=== PATIENT | female | born 1970 | race Caucasian/White ===

== ENCOUNTER 2025-03-19 17:57 | Emergency (ER) | payer OTHER, SELFPAY ==
--- OUTSIDE RECORDS SUMMARY | 2025-02-13 09:20 | XMS_ITS ---
Author Organization [facility] Address [address] [place] [address] Care Team Providers Care Counter Checker Name Role Phone Kip Silverman Primary Care Provider Ricci Parish Unavailable [phone] REASON FOR VISIT F/U,pseudo seizures and fibromyalgia Social History Sex Assigned At : Social History Observation Description Sex Assigned At Female Encounters Encounter Location Date Provider Diagnosis [address] [place] [address] 02/13/2025 Ricci Parish Plan Of Treatment Next Appt Details Provider Name:Kip Silverman, 02:00:00 PM, [address] [place] [address], [id number], Progress Notes * Dimitri DUCKWORTHOB: 0 (54 yo F)Acc No.[id number]:02/13/2025 UNLOCKED PROGRESS NOTE Patient: Celeste Ruthann GILMAN Provider: Lisandro Parish :1970 A ge:54 Y S ex:Female Date:02/13/2025 Address:[address] [place] [id number] Pcp:Kip Silverman Subjective: * Chief Complaints: * 1 . F/U,pseudo seizures and fibromyalgia. * Medical History: Objective: * Vitals: Assessment: Plan: * Treatment: * * Electronic signature of Anatoliy Parish , [id number] on 03/19/2025 at 06:05 PM CDT Sign off status: Pending * Provider: Lisandro Parish Date: 0 02/13/2025 Generated for Peter hammond/Ramiro/Allan on: 1 06:05 PM CDT
--- NOTE | 2025-03-19 17:59 | ED_ITS ---
HPI - General Adult General Chief complaint: Skin/Abscess/Foreign Body Stated complaint: Rash Time Seen by Provider: 03/19/25 18:17 Source: patient, RN notes reviewed and old records reviewed Mode of arrival: ambulatory Limitations: no limitations History of Present Illness HPI narrative: 54-year-old female presents to the [facility] with a rash to her lateral abd that started at 1:00 p.m. today, 4 hours ago no treatment prior to arrival patient states he only new things that have been introduced was a new strain of marijuana and meloxicam. Related Data Home Medications ?Medication ?Instructions ?Recorded ?Confirmed ?Last Taken ?Type divalproex 500 mg tablet,extended mg PO 03/19/25 Unkn own History release 24 hr hydroxyzine pamoate 50 mg capsule mg 03/19/25 Unknown History meloxicam 15 mg tablet mg 03/19/25 Unknown History trazodone 100 mg tablet mg 03/19/25 Unknown History Allergies Allergy/AdvReac Type Severity Reaction Status Date / Time alprazolam (From Xanax) Allergy Unknown Unknown Verified 03/19/25 18:18 aluminum Allergy Unknown Unknown Verified 03/19/25 18:18 chocolate Allergy Unknown Unknown Verified 03/19/25 18:18 coffee (Coffea arabica) Allergy Unknown Unknown Verified 03/19/25 18:18 egg Allergy Unknown Unknown Verified 03/19/25 18:18 peanut Allergy Unknown Unknown Verified 03/19/25 18:18 wheat Allergy Unknown Unknown Verified 03/19/25 18:18 Yeast Allergy Unknown Unknown Verified 03/19/25 18:18 cod Allergy Unknown Unknown Uncoded 03/19/25 18:18 [place] Allergy Unknown Unknown Uncoded 03/19/25 18:18 Review of Systems Review of Systems: All systems reviewed & are unremarkable except as noted in HPI and below Constitutional: Constitutional: Reports no additional constitutional complaints ENT: Reports system reviewed and no additional complaints, except as documented Cardiovascular: Cardiovascular: Reports no additional cardiovascular complaints, Denies chest pain and Denies dyspnea Respiratory: Respiratory: Reports no additional respiratory complaints, Denies chest congestion, Denies cough and Denies dyspnea Musculoskeletal: Musculoskeletal: Reports no additional musculoskeletal complaints Integumentary/Breasts: Skin/Breast: Reports as per HPI PMFSH Comments At the time of my signature, I reviewed and agree with the nursing past medical, surgical, social, and family history. There is no relevant family history pertinent to the patient complaint. Exam Const: General: cooperative, healthy appearing, comfortable, no acute distress, well developed, alert and well nourished Nutritional Appearance: well nourished Orientation/consciousness: patient oriented x3 Limitations: no limitations HENMT: Head: normal to inspection Mouth: Yes Normal oral and palatal mucosa present, Yes lip normal, Yes tongue normal and Yes moist mucous membranes Eyes: General: appearance normal, both eyes and all related structures Alignment and Position: alignment normal Neck: Neck: normal visual inspection, full ROM, no lymphadenopathy and no meningeal signs Chest: Chest palpation & inspection: normal inspection of the chest Resp: Effort & Inspection: normal respiratory effort and able to speak in complete sentences Auscultation: clear to auscultation bilaterally, no crackles, no rales, no rhonchi and no wheezes Cardio: Rate: regular rate Skin: General skin exam: normal color Other: [place] flat rash to the lateral abdomen both right and left. Neuro: General: patient oriented x3, gait normal, moves all extremities and no meningeal signs Cognition (Neuro): normal cognition Speech: normal speech Gait exam (Neuro): Normal gait present Extrem: General: normal to inspection, full ROM, capillary refill normal and normal gait Psych: Appearance: grossly normal and well kempt Mental Status: mental status grossly normal Speech and movement: Normal speech and movement present and Clear speech present Affect: normal affect Attitude: cooperative Course Course Level of Care: Express Care Visit Vital Signs Vital signs: Vital Signs Temperature 97.9 F 03/19/25 18:06 Pulse Rate 85 03/19/25 18:06 Respiratory Rate 20 03/19/25 18:06 Blood Pressure 143/92 H 03/19/25 18:06 Pulse Oximetry 100 03/19/25 18:06 Oxygen Delivery Room Air 03/19/25 18:06 Temperature 97.9 F 03/19/25 18:06 Pulse Rate 85 03/19/25 18:06 Respiratory Rate 20 03/19/25 18:06 Blood Pressure 143/92 H 03/19/25 18:06 Pulse Oximetry 100 03/19/25 18:06 Oxygen Delivery Room Air 03/19/25 18:06 Reviewed Medical Decision Making MDM Narrative Medical decision making narrative: Patient sitting in exam room. Patient nontoxic, vitals stable. Patient presents with an itchy rash with no known cause. Rash to lateral abdomen both right and left. Fine, flat, pink. No signs of cellulitic changes Discussed [id number] treatments. Patient states that she does get anxious with prednisone but with like prednisone to help with the allergic reaction. Patient is in no distress. No lip or tongue swelling. No respiratory distress. Discharge instructions reviewed with patient, as well as provided in writing per nursing staff. The instructions also include specific and strict return/GO TO THE ER as well as f/u information. All questions have been answered, and the patient deny any further questions with discharge and discharge plan. Some parts of this dictation were generated by voice recognition software and may contain typographical and/or grammatical inaccuracies. Differential Diagnosis Differential Diagnosis: Acute rash, contact dermatitis Medical Records Medical records reviewed: Yes I reviewed the external patient's medical records. Vital Signs Vital Signs: Vital Signs Temperature 97.9 F 03/19/25 18:06 Pulse Rate 85 03/19/25 18:06 Respiratory Rate 20 03/19/25 18:06 Blood Pressure 143/92 H 03/19/25 18:06 Pulse Oximetry 100 03/19/25 18:06 Oxygen Delivery Room Air 03/19/25 18:06 Temperature 97.9 F 03/19/25 18:06 Pulse Rate 85 03/19/25 18:06 Respiratory Rate 20 03/19/25 18:06 Blood Pressure 143/92 H 03/19/25 18:06 Pulse Oximetry 100 03/19/25 18:06 Oxygen Delivery Room Air 03/19/25 18:06 Reviewed Lab Data Lab results reviewed: Yes I reviewed the patient's lab results. Labs: Reviewed Critical Care Time Critical Care Time Critical Care Time: No Discharge Plan Discharge Clinical Impression: Urticaria Patient Disposition: Home Condition: Stable Instructions: Acute Rash (ED) Additional Instructions: The most important part of your care is follow up with Primary care provider. take your hydroxyzine as prescribed Take Zyrtec every day Take Pepcid 20mg daily for 7 days Take the steroids starting In the morning Avoid hot showers, Take cool showers. Hot showers will make rashes worse Apply cool compresses every 2-3 hours for 15 minutes Go to the ER for new or worsening symptoms such as shortness of breath. Patient Language: Belizean Prescriptions: New prednisone 20 mg tablet 20 mg PO DAILY 5 Days Qty: 5 0RF No Action meloxicam 15 mg tablet hydroxyzine pamoate 50 mg capsule trazodone 100 mg tablet divalproex 500 mg tablet extended release 24 hr PO Follow-up/Referrals: Ricci Parish MD [Primary Care Provider, Hospitalist] Time of Disposition: 18:22
--- OUTSIDE RECORDS SUMMARY | 2025-03-19 18:05 | XMS_ITS | Patient Health Record ---
Author Organization [facility] Address [address] [place] [address] Care Team Providers Care Instrumentation Controls Engineer Name Role Phone Antonia Reyes Unavailable [phone] Doug Child MD Unavailable Unavailable Reason For Referral No Information Medications Medication SIG (Take, Route, Frequency, Duration) Notes Start Date End Date Status Vitamin D3 - daily - *Pick strength-form from [employer] for eRX* Active Mood Stabilizer - name and mg unknown; take 1 at bedtime - *Reorder from [employer] for eRx and Interaction Alerts* Active cyanocobalamin (vitamin B-12) - daily oral *Reorder from [employer] for eRx and Interaction Alerts* Active buspirone 20 mg daily oral *Reorder from [employer] for eRx and Interaction Alerts* Active Neti Pot - - - *Reorder from [employer] for eRx and Interaction Alerts* Active Effexor XR 75 MG take 1 capsule (75 mg) by oral route once daily Oral 1 Active Plan Of Treatment No Information Insurance Providers Payer Name Payer Address Payer Phone Subscriber Number Group Number Insured Name Patient Relationship to Insured Coverage Start Date Coverage End Date [facility] [id number] [place] [employer] [id number] Ruthann Holland Self - patient is the insured Medical (General) History Surgical History Surgery Date(Month/Year) ABL[place]; 2021-06-21
[2025-03-19 18:06] VITALS: BP 143/92; PULSE 85; RESP 20; TEMP 36.6; O2SAT 100
--- OUTSIDE RECORDS SUMMARY | 2025-03-19 18:06 | XMS_ITS | Clinical Summary ---
Author Organization [facility] Address [address] [place] [address] Care Team Providers Care Director Oncology Name Role Phone Doug Child MD Primary Care Provider [phone] Source Comments [facility],non-owned Affiliates and Associated Physician Practices is amultiple site organization consisting of ambulatory clinics and hospital sitesin [place], [place], [place] and [place]. This disclosure is being madepursuant to the Care Everywhere program and may not contain all information available regarding this patient. Last updated 18.[facility] Allergies Active Allergy Reactions Criticality Noted Date Comments Latex Swelling 09/16/2021 Redness and swelling Medications * Be aware that medications may not be up to date on this document. Alwaysverify current medications with the patient. ALPRAZolam (XANAX) 0.25 MG tablet Take 1 (one) tablet by mouth as needed for Anxiety Active cyanocobalamin (VITAMIN B-12) 1000 MCG tablet Take 1 (one) tablet by mouth once daily Active meloxicam (MOBIC) 15 MG tablet Take 1 (one) tablet by mouth once daily Active busPIRone (BUSPAR) 15 MG tablet Take 1 (one) tablet by mouth 2 times daily 08/18/2021 Active venlafaxine XR 24hr (EFFEXOR XR) 75 MG capsule Take 2 (two) capsules by mouth once daily 08/14/2021 Active VITAMIN D PO Take 5,000 mg by mouth once daily Active pregabalin (LYRICA) 150 MG capsule TAKE 1 CAPSULE BY MOUTH TWICE A DAY 11/17/2021 Active Active Problems Problem Noted Date Diagnosed Date Encounter for screening colonoscopy 08/16/2020 Overview (2021): Added automatically from request for surgery [id number] Anxiety 07/09/2013 Overview (2021): Anxiety Family History Medical History Relation Name Comments Hypertension Mother Osteoporosis Mother Cancer - Breast Paternal Grandmother Relation Name Status Comments Mother Paternal Grandmother Social History Tobacco Use Types Packs/Day Years Used Date Smoking Tobacco: Former Cigarettes 1 1 - 2006 Smokeless Tobacco: Never Alcohol Use Standard Drinks/Week Comments Never 0 (1 standard drink = 0.6 oz pur e alcohol) AUDIT-C Answer Date Recorded Q1: How often do you have a drink containing alcohol? Never 01/10/2022 Q2: How many drinks containi ng alcohol do you have on a typical day when you are drinking? Patient does not drink Q3: How often do you have si x or more drinks on one occasion? Never 01/10/2022 Comments No Sex and Gender Information Value Date Recorded Sex Assigned at Female 12/08/2021 5:43 PM CDT Legal Sex Female 9:37 AM [employer] Gender Identity Female 12/08/2021 5:43 PM CDT Sexual Orientation Straight 12/08/2021 5: 43 PM CDT Last Filed Vital Signs Vital Sign Reading Time Taken Comments Blood Pressure 118/71 08/22/2022 2:16 PM CDT Pulse 87 08/22/2022 2:16 PM CDT Temperature 37.1 C (98.7 F) 08/22/2022 2:16 PM CDT Respiratory Rate 16 08/22/2022 2:16 PM CDT Oxygen Saturation 97% 08/22/2022 2:16 PM CDT Inhaled Oxygen Concentration - - Weight 63.5 kg (140 lb) 08/22/2022 2:16 PM CDT Height 160 cm (5' 3) 08/22/2022 2:16 PM CDT Body Mass Index 24.8 08/22/2022 2:16 PM CDT Plan of Treatment Health Maintenance Due Date Last Done Comments COLOGUARD (AGES 45-75) - COLON CA SCREENING 1970 COLON MONITORING 1969 COLONOSCOPY - COLON CA SCREENING 1969 CT COLONOGRAPHY - COLON CA SCREENING 1970 Colorectal Cancer Screening 1970 FIT - COLON CA SCREENING 1969 FLEX SIG - COLON CA SCREENING 1969 LIPID TESTING 1970 HIV SCREENING 1984 HEPATITIS C SCREENING 07/23/1987 DTAP/TDAP/TD VACCINES (1 - Tdap) 1988 HEPATITIS B VACCINE (1 of 3 - 19+ 3-dose series) 1988 PAP SMEAR 1990 PNEUMOCOCCAL VACCINE 50+ (1 of 1 - PCV) 07/28/2019 ZOSTER VACCINE (1 of 2) 07/28/2019 MAMMOGRAM 12/10/2023 12/09/2021, 11/19, 09/03/2020, Additional history exists DEPRESSION SCREENING 05/21/2024 COVID-19 VACCINE (1 - season) 2025 INFLUENZA VACCINE (#1) 2025 HIB VACCINE Aged Out No longer eligi ble based on patient's age to complete this topic HPV VACCINE Aged Out No longer eligi ble based on patient's age to complete this topic MENINGOCOCCAL (Group B) VACCINE SHARED DECISION-MAKING Aged Out No longer eligible based on patient's age to complete this topic MENINGOCOCCAL GROUPS A/C/Y/W VACCINE Aged Out No longer eligible based on patient's age to complete this topic Care Teams Director Oncology Relationship Specialty Start Date End Date Doug Child MD [address] [place] [place] [address] PCP - General 05/24/22
--- OUTSIDE RECORDS SUMMARY | 2025-03-19 18:06 | XMS_ITS | Clinical Summary ---
Author Organization [facility] Address [address] [place] [address] Care Team Providers Care Director Outcomes Name Role Phone None, Provider MD Primary Care Provider Unavaila ble Medications No known medications Encounters Date Type Department Care Team Description 02/25/2025 2:18 PM CDT - 02/26/2025 3:38 AM CDT Emergency [facility] [address] [facility] [place] [address] Gera Minaya MD Psychiatric Problem Discharge Disposition: Transfer to Acute [facility] 02/25/2025 Travel from Last 3 Months Social History Tobacco Use Types Packs/Day Years Used Date Smoking Tobacco: Unknown Tobacco Cessation:Counseling Given: Not Answered Comments Unknown Sex and Gender Information Value Date Recorded Sex Assigned at Female 02/25/2025 2:37 PM CDT Legal Sex Female 2:16 PM CDT Gender Identity Not on file Sexual Orientation Not on file Last Filed Vital Signs Vital Sign Reading Time Taken Comments Blood Pressure 150/95 02/25/2025 2:27 PM CDT Pulse 102 02/25/2025 2:27 PM CDT Temperature 36.5 C (97.7 F) 02/25/2025 2:27 PM CDT Respiratory Rate 18 02/25/2025 2:27 PM CDT Oxygen Saturation 97% 02/25/2025 2:27 PM CDT Inhaled Oxygen Concentration - - Weight 70.3 kg (155 lb) 02/25/2025 2:27 PM CDT Height 160 cm (5' 3) 02/25/2025 2:27 PM CDT Body Mass Index 27.46 02/25/2025 2:27 PM CDT Plan of Treatment Health Maintenance Due Date Last Done Comments Cervical Cancer Screening Pap Smear (Age 30 to 64) Every 3 Years 1969 Colorectal Cancer Screening Colonoscopy (10 Years) 1969 Annual Physical 1972 Hepatitis C 07/28/1987 DTaP, Tdap and Td Vaccines (1 - Tdap) 1988 Hepatitis B Vaccines (1 of 3 - 19+ 3-dose series) 1988 Cervical Cancer Screening Pap with HPV Testing (Age 30 to 64) Every 5 Years 07/28/1999 Cervical Cancer Screening with HPV 07/28/1999 Pneumococcal Vaccine: 50+ Years (1 of 1 - PCV) 07/28/2019 Zoster Vaccines (1 of 2) 07/28/2019 COVID-19 Vaccine (1 - season) 2025 Influenza Adult (#1) 2025 Mammogram Screening 11/27/2026 11/27/2024, 12/09/2021, 09/03/2020, Additional history exists Hepatitis A Vaccines Aged Out No long er eligible based on patient's age to complete this topic Meningococcal B Vaccine Aged Out No l onger eligible based on patient's age to complete this topic Meningococcal Vaccine Aged Out No kaila george eligible based on patient's age to complete this topic RSV Immunizations Under 20 Months Aged Out No longer eligible based on patient's age to complete this topic Procedures Procedure Name Priority Date/Time Associated Diagnosis Comments CORONAVIRUS (COVID-19) ANTIGEN STAT 02/25/2025 11:26 PM CDT URINE BACTERIA CULTURE STAT 3:00 PM CDT DRUG SCREEN RAPID STAT 02/25/2025 3:0 0 PM CDT HC URINALYSIS AUTO W/MICRO STAT 02/25/2025 3:00 PM CDT ETHANOL STAT 02/25/2025 2:21 PM CDT MAGNESIUM STAT 02/25/2025 2:21 PM CDT SALICYLATE STAT 02/25/2025 2:21 PM CDT ACETAMINOPHEN STAT 02/25/2025 2:21 PM CDT THYROID STIM HORMONE TSH STAT 02/25/2025 2:21 PM CDT COMPREHENSIVE METABOLIC PANEL STAT 02/25/2025 2:21 PM CDT CBC W/DIFF AUTOMATED STAT 02/25/2025 2:21 PM CDT from Last 3 Months Results * CORONAVIRUS (COVID-19) ANTIGEN (02/25/2025 11:26 PM CDT) [facility] CORONAVIRUS ANTIGEN IA NEGATIVE NEGATIVE 02/25/2025 11:48 PM CDT [facility] Comment: NEGATIVE RESULTS DO NOT RULE OUT SARS-COV-2 INFECTION AND SHOULD NOT BE USED THE SOLE BASIS FOR TREATMENT OR PATIENT MANAGEMENT DECISIONS, INCLUDING INFECTION CONTROL DECISIONS. NEGATIVE RESULTS SHOULD BE CONSIDERED IN THE CONTEXT OF A PATIENT'S RECENT EXPOSURES, HISTORY AND THE PRESENCE OF CLINICAL SIGNS AND SYMPTOMS CONSISTENT WITH COVID 19. THIS TEST HAS BEEN AUTHORIZED BY THE FDA UNDER AN EMERGENCY USE AUTHORIZATION (EUA) FOR USE BY AUTHORIZED LABORATORIES. SPECIMEN TYPE NASAL 02/25/2025 11:28 PM CDT [facility] NASAL NASAL STRUCTURE / Unknown 02/25/2025 11:26 PM CDT us Gera Minaya MD MICROBIOLOGY - GENERAL ORDERABLE S Final Result [facility] [address] [place] [address], * (ABNORMAL) DRUG SCREEN RAPID (02/25/2025 3:00 PM CDT) Pathologist [facility] CANNABINOIDS SCREEN (U) POSITIVE(A) NEGATIVE 02/25/2025 3:56 PM CDT [facility] PHENCYCLIDINE PCP (U) NEGATIVE NEGATIVE 02/25/2025 3:56 PM CDT [facility] COCAINE METABOLITES (U) NEGATIVE NEGATIVE 02/25/2025 3:56 PM CDT [facility] METHAMPHETAMINE SCREEN (U) NEGATIVE NEGATIVE 02/25/2025 3:56 PM CDT [facility] OPIATE SCREEN (U) NEGATIVE NEGATIVE 025 3:56 PM CDT [facility] AMPHETAMINE SCREEN (U) NEGATIVE NEGATIVE 02/25/2025 3:56 PM CDT [facility] BENZODIAZEPINES SCREEN (U) NEGATIVE NEGATIVE 02/25/2025 3:56 PM CDT [facility] TRICYCLIC ANTIDEPRESSANT SCREEN (U) NEGATIVE NEGATIVE 02/25/2025 3:56 PM CDT [facility] METHADONE (U) NEGATIVE NEGATIVE 02/25/2025 3:56 PM CDT [facility] BARBITURATES SCREEN (U) NEGATIVE NEGATIVE 02/25/2025 3:56 PM CDT [facility] OXYCODONE SCREEN (U) NEGATIVE NEGATIVE 02/25/2025 3:56 PM CDT [facility] URINE TOX COMMENT THIS TEST METHODOLOGY IS DESIGNED AND OFFERED A RAPID TURNAROUND, QUALITATIVE SCREENING PROCEDURE TO AID IN THE IMMEDIATE MEDICAL ASSESSMENT OF PATIENTS SUSPECTED OF SUBSTANCE ABUSE. 02/25/2025 3:37 PM CDT [facility] Comment: CLINICAL CONSIDERATION AND PROFESSIONAL JUDGMENT MUST BE APPLIED TO ANY DRUG OF ABUSE TEST RESULT, BOTH POSITIVE AND NEGATIVE. CONFIRMATORY QUANTITATIVE RESULTS ARE AVAILABLE THROUGH OUR REFERENCE LAB[facility]ATORY. URINE SPECIMEN / Unknown 02/25/2025 3:00 PM CDT us Geraluiza Minaya MD URINE ORDERABLES Final Result [facility] [address] [place] [address], * (ABNORMAL) URINALYSIS (02/25/2025 3:00 PM CDT) COLOR (U) YELLOW 02/25/2025 3:53 PM CDT [facility] TRANSPARENCY CLEAR 02/25/2025 3:53 PM CDT [facility] SPECIFIC GRAVITY (U) 1.005 1.000 - 1.025 02/25/2025 3:53 PM CDT [facility] Comment:LESS THAN OR EQUAL T O U PH 6.5 5.0 - 8.0 02/25/2025 3:53 PM CDT [facility] LEUKOCYTES (U) NEGATIVE NEGATIVE 02/25/2025 3:53 PM CDT [facility] NITRITES NEGATIVE NEGATIVE 02/25/2025 3:53 PM CDT [facility] PROTEIN RANDOM (U) NEGATIVE NEGATIVE 02/25/2025 3:53 PM CDT [facility] GLUCOSE (U) NEGATIVE NEGATIVE 02/25/2025 3:53 PM CDT [facility] KETONES MG/DL (U) 1+(A) NEGATIVE 02/25/2025 3:53 PM CDT [facility] UROBILINOGEN 0.2 <1.0 EU/DL 02/25/2025 3:53 PM CDT [facility] BILIRUBIN (U) NEGATIVE NEGATIVE 02/25/2025 3:53 PM CDT [facility] BLOOD (U) NEGATIVE NEGATIVE 02/25/2025 3:53 PM CDT [facility] WBC/HPF 0-5 0 - 5 /HPF 02/25/2025 3:53 PM CDT [facility] RBC/HPF 0-5 0 - 5 /HPF 02/25/2025 3:53 PM CDT [facility] EPI/LPF MODERATE /LPF 02/25/2025 3:53 PM CDT [facility] BACTERIA (U) 1+ /HPF 02/25/2025 3:53 PM CDT [facility] URINE SPECIMEN OBTAINED BY CLEAN CATCH PROCEDURE / Unknown 02/25/2025 3:00 PM CDT us Gera Minaya MD URINE ORDERABLES Final Result [facility] [address] [place] [address], * CULTURE URINE (02/25/2025 3:00 PM CDT) SPEC DESCRIPTION URINE CLEAN CATCH 02/25/2025 3:37 PM CDT [facility] SPECIAL REQUESTS NO SPECIAL REQUEST 02/25/2025 3:37 PM CDT [facility] CULTURE RESULT FEW CONTAMINANTS 02/18 7:58 AM CDT [facility] URINE SPECIMEN OBTAINED BY CLEAN CATCH PROCEDURE / Unknown 02/25/2025 3:00 PM CDT 02/25/2025 6:58 PM CDT us Gera Minaya MD MICROBIOLOGY - GENERAL ORDERABLE S Final Result [facility] [address] [place] [address], [place] [phone] [facility] [address] [place] [address], [place] [phone] * (ABNORMAL) COMPREHENSIVE METABOLIC PANEL (02/25/2025 2:21 PM CDT) SODIUM S/P/B 133(L) 136 - 145 MMOL/L 02/25/2025 3:28 PM CDT [facility] POTASSIUM S/P/B 3.3(L) 3.5 - 5.1 MMOL/L 02/25/2025 3:28 PM CDT [facility] CHLORIDE S/P/B 97(L) 98 - 107 MMOL/L 02/25/2025 3:28 PM CDT [facility] CO2 23.7 21.0 - 32.0 MMOL/L 02/25/2025 3:28 PM CDT [facility] GLUCOSE 120(H) 70 - 99 MG/DL 02/25/2025 3:28 PM CDT [facility] Comment: FASTING GLUCOSE 100 TO 125 MG/DL IS CONSISTENT WITH IMPAIRED FASTING GLUCOSE. FASTING GLUCOSE >125 MG/DL IS CONSISTENT WITH DIABETES. RANDOM GLUCOSE >200 MG/DL WITH HYPERGLYCEMIC SYMPTOMS IS CONSISTENT WITH DIABETES. PER ADA GUIDELINES BUN 5(L) 6 - 24 MG/DL 02/25/2025 3:28 PM CDT [facility] CREATININE S/P/B 0.83 0.55 - 1.02 MG/DL 02/25/2025 3:28 PM [facility] CALCIUM S/P/B 9.7 8.4 - 10.5 MG/DL 02/25/2025 3:28 PM [facility] BILIRUBIN TOTAL S/P/B 0.5 0.2 - 1.0 MG/DL 02/25/2025 3:28 PM T [facility] Comment: THIS ASSAY IS NOT RECOMMENDED FOR PATIENTS UNDERGOING TREATMENT WITH ELTROMBOPAG DUE TO THE POTENTIAL FOR FALSELY ELEVATED RESULTS. ALKALINE PHOSPHATASE S/P/B 52 41 - 108 U/L 02/25/2025 3:28 PM T [facility] AST 31 15 - 37 U/L 02/25/2025 3:28 PM [facility] ALT 20 14 - 59 U/L 02/25/2025 3:28 PM [facility] TOTAL PROTEIN S/P/B 7.2 6.4 - 8.2 G/DL 02/25/2025 3:28 PM [facility] ALBUMIN S/P/B 4.3 3.4 - 5.0 G/DL 02/25/2025 3:28 PM [facility] ANION GAP 12.3 5.0 - 15.0 MMOL/L 02/25/2025 3:28 PM [facility] OSMOLALITY (CALC) 274 MOSM/KG 025 3:28 PM [facility] Comment:REFERENCE RANGE NOT ESTABLISHED GFR ESTIMATE 83(L) >89 ML/MIN/1. 73 M2 02/25/2025 3:28 PM T [facility] GFR NOTES GFR REFERENCE S: 02/25/2025 3:28 PM [facility] Comment: THE ESTIMATED GFR IS CALCULATED USING THE 2020 CKD-EPI EQUATION. THE FOLLOWING CATEGORIES FOR GRADING RENAL FUNCTION ARE RECOMMENDED BY THE INTERNATIONAL SOCIETY OF NEPHROLOGY (KDIGO 2012 CLINICAL PRACTICE GUIDELINE). G1,NORMAL OR HIGH: >89 ml/min/1.73 m2 G2,MILDLY DECREASED: 60-89 ml/min/1.73 m2 G3A,MILDLY TO MODERATELY DECREASED: 45-59 ml/min/1.73 m2 G3B,MODERATELY TO SEVERELY DECREASED: 30-44 ml/min/1.73 m2 G4,SEVERELY DECREASED: 15-29 ml/min/1.73 m2 G5,KIDNEY FAILURE: <15 ml/min/1.73 m2 02/25/2025 2:21 PM CDT us Gera Minaya MD LABORATORY Final Result [facility] [address] [place] [address], * CBC W/DIFF AUTOMATED (02/25/2025 2:21 PM CDT) WBC 6.99 4.00 - 10.80 x10'3/uL 02/25/2025 2:48 PM CDT [facility] RBC 4.24 4.10 - 5.40 x10'6/uL 02/25/2025 2:48 PM CDT [facility] HGB 12.6 12.0 - 16.0 G/DL 02/25/2025 2:48 PM CDT [facility] HCT 36.7 36.0 - 47.0 % 02/25/2025 2:48 PM CDT [facility] MCV 86.6 78.0 - 100.0 FL 02/25/2025 2:48 PM CDT [facility] MCH 29.7 27.0 - 31.0 PG 02/25/2025 2:48 PM CDT [facility] MCHC 34.3 33.0 - 36.0 G/DL 02/25/2025 2:48 PM CDT [facility] RDW 12.6 11.5 - 14.5 % 02/25/2025 2:48 PM CDT [facility] PLT 311 150 - 350 x10'3/uL 02/25/2025 2:48 PM CDT [facility] MPV 10.3 7.4 - 10.4 FL 02/25/2025 2:48 PM CDT [facility] CBC COMMENT NORMAL REFERENCE RANGE NOT ESTABLISHED FOR THE PROPORTIONAL LEUKOCYTE DIFFERENTIAL. 02/25/2025 2:48 PM CDT [facility] NEUTROPHILS % 67.7 % 02/25/2025 2:48 PM CDT [facility] LYMPHOCYTES % 24.0 % 02/25/2025 2:48 PM CDT [facility] MONOCYTES % 7.7 % 02/25/2025 2:48 PM CDT [facility] EOSINOPHILS % 0.1 % 02/25/2025 2:48 PM CDT [facility] BASOPHILS % 0.4 % 02/25/2025 2:48 PM CDT [facility] IMMATURE GRANS % 0.1 % 02/26/20 2:48 PM CDT [facility] NRBC % 0.0 % 02/25/2025 2:48 PM CDT [facility] ABS. NEUTROPHILS 4.72 1.60 - 8.30 x10'3/uL 02/25/2025 2:48 PM CDT [facility] ABS. LYMPHOCYTES 1.68 0.80 - 4.70 x10'3/uL 02/25/2025 2:48 PM CDT [facility] ABS. MONOCYTES 0.54 0.00 - 1.50 x10'3/uL 02/25/2025 2:48 PM CDT [facility] ABS. EOSINOPHILS 0.01 0.00 - 0.40 x10'3/uL 02/25/2025 2:48 PM CDT [facility] ABS. BASOPHILS 0.03 0.00 - 0.20 x10'3/uL 02/25/2025 2:48 PM CDT [facility] ABS. IMMATURE GRANULOCYTES 0.01 0.00 - 0.03 x10'3/uL 02/25/2025 2:48 PM CDT [facility] ABS. NUCLEATED RBC'S 0.00 0.00 - 0.01 x10'3/uL 02/25/2025 2:48 PM CDT [facility] 02/25/2025 2:21 PM CDT us Gera Minaya MD LABORATORY Final Result [facility] [address] [place] [id number], * THYROID STIM HORMONE, TSH (02/25/2025 2:21 PM CDT) TSH 1.059 0.358 - 3.740 uIU/ML 02/25/2025 3:28 PM CDT [facility] Comment: ASSAY PERFORMED BY CHEMILUMINESCENT IMMUNOASSAY METHODOLOGY USING [employer]. PATIENT RESULTS DETERMINED BY ASSAYS FROM DIFFERENT MANUFACTURERS AND/OR BY DIFFERENT METHODS MAY NOT BE COMPARABLE. 02/25/2025 2:21 PM CDT us Gera Minaya MD LABORATORY Final Result Performing Organization Address City/[facility]/ZIP Co de Phone Number [facility] [address] [place] [id number], * MAGNESIUM (02/25/2025 2:21 PM CDT) MAGNESIUM 2.0 1.8 - 2.4 MG/DL 02/25/2025 3:28 PM CDT [facility] 02/25/2025 2:21 PM CDT us Gera Minaya MD LABORATORY Final Result [facility] [address] [place] [id number], * SALICYLATE (02/25/2025 2:21 PM CDT) SALICYLATES 5.6 2.8 - 20.0 MG/DL 02/25/2025 3:28 PM CDT [facility] 02/25/2025 2:21 PM CDT us Gear Minaya MD LABORATORY Final Result Performing Organization Address [facility] Co de Phone Number [facility] [address] [place] [id number], * ETHANOL (02/25/2025 2:21 PM CDT) ALCOHOL S/P/B <0.003 <0.003 G/DL 02/25/2025 11:37 PM CDT [facility] 02/25/2025 2:21 PM CDT us Gera Minaya MD LABORATORY Final Result Performing Organization Address [facility] de Phone Number [facility] [address] [place] [address], * (ABNORMAL) ACETAMINOPHEN (02/25/2025 2:21 PM CDT) ACETAMINOPHEN S/P/B 0.0(L) 10.0 - 30.0 MCG/ML 02/25/2025 3:28 PM CDT [facility] 02/25/2025 2:21 PM CDT us Gera Minaya MD LABORATORY Final Result Performing Organization Address [facility] Co de Phone Number [facility] [address] [place] [id number], [place] [phone] from Last 3 Months Insurance Care Teams Director Outcomes Relationship Specialty Start Date End Date None, Provider, PCP - General UNKNOWN PHYSICIAN SPECIALTY 02/26/25
--- OUTSIDE RECORDS SUMMARY | 2025-03-19 18:06 | XMS_ITS | Patient Health Record ---
Author Organization [facility] Address [address] [place] [address] Care Team Providers Care Processor Inspector Name Role Phone Kip Hendrix Primary Care Provider Ricci Parish Unavailable [phone] Allergies Allergen (clinical drug ingredient) Drug/Non Drug Allergy documented on EMR Reaction Allergy Type Onset Date Status fluoxetine PROzac Unknown Drug Allergy Active alprazolam Xanax Unknown Drug Allergy Active sertraline Zoloft Unknown Drug Allergy Active Results Component Value Reference Range Notes Hemoglobin A1c* Reviewed date:09/25/2024 03:21:15 PM Interpretation: Performing Lab:[facility], [address] [facility], Phone - [phone], Director - Lorelei Notes/Report: Hemoglobin A1c 5.6 4.8-5.6 % . Prediabetes: 5.7 - 6.4 Diabetes: >6.4 Glycemic control for adults with diabetes: <7.0 Lipid Panel* Reviewed date:09/25/2024 03:21:15 PM Interpretation: Performing Lab:[facility], [address] [facility], Phone - [phone], Director - PhDMicky Notes/Report: Cholesterol, Total 220 100-199 mg/dL Triglycerides 121 0-149 mg/dL HDL Cholesterol 69 >39 mg/dL VLDL Cholesterol Dao 21 5-40 mg/dL LDL Chol Calc ([facility]) 130 0-99 mg/dL Carotid Duplex Reviewed date:12/04/2024 01:44:01 PM Interpretation: Performing Lab: Notes/Report: 12 Panel Urine Drug Screen Reviewed date:09/23/2024 09:23:41 AM Interpretation: Performing Lab: Notes/Report: THC POS TIERA neg MOP (OPI) neg AMP neg MET neg BAR neg BZO neg MDMA neg MTD neg OXY neg PCP neg BUP neg HIV Screen *HIV 1, 2 Ab, p24 Ag (035891) Reviewed date:09/25/2024 03:21:15 PM Interpretation: Performing Lab:[facility], [address] [place] [address], Phone - [phone], Director - [facility] Notes/Report: HIV Ab/p24 Ag Screen Non Reactive Non Reactive HIV-1/HIV-2 antibodies and HIV-1 p24 antigen were NOT detected. There is no laboratory evidence of HIV infection. HIV Negative Vitamin B12 and Folate Reviewed date:09/25/2024 03:21:15 PM Interpretation: Performing Lab:[facility], [address] [place] [address], Phone - [phone], Director - [facility] Notes/Report: Vitamin B12 353 133-3225 pg/mL Folate (Folic Acid), Serum TNP Test not performed. Specimen is hemolyzed. Unable to obtain valid results. A serum folate concentration of less than 3.1 ng/mL is considered to represent clinical deficiency. CBC With Differential/Platel et* Reviewed date:09/25/2024 03:21:15 PM Interpretation: Performing Lab:[facility], [address] [place] [address], Phone - [phone], Director - [facility] Notes/Report: WBC 4.7 3.4-10.8 x10E3/uL RBC 5.05 3.77-5.28 x10E6/uL Hemoglobin 14.6 11.1-15.9 g/dL Hematocrit 45.5 34.0-46.6 % MCV 90 79-97 fL MCH 28.9 26.6-33.0 pg MCHC 32.1 31.5-35.7 g/dL RDW 13.3 11.7-15.4 % Platelets 292 150-450 x10E3/uL Neutrophils 53 Not Estab. % Lymphs 37 Not Estab. % Monocytes 7 Not Estab. % Eos 2 Not Estab. % Basos 1 Not Estab. % Neutrophils (Absolute) 2.5 1.4-7.0 x10E3/uL Lymphs (Absolute) 1.8 0.7-3.1 x10E3/uL Monocytes(Absolute) 0.3 0.1-0.9 x10E3/uL Eos (Absolute) 0.1 0.0-0.4 x10E3/uL Baso (Absolute) 0.0 0.0-0.2 x10E3/uL Immature Granulocytes 0 Not Estab. % Immature Grans (Abs) 0.0 0.0-0.1 x10E3/uL Hepatitis B Surface Antigen (HBsAg Screen) Reviewed date:09/25/2024 03:21:15 PM Interpretation: Performing Lab[facility] [address] [facility], Phone - [phone], Director - [facility] Notes/Report: HBsAg Screen Negative Negative Specimen Status Report TNP Comment: Test not performed. Specimen is hemolyzed. Unable to obtain valid results. TEST: 280556 Folate (Folic Acid), Serum Panel: [id number] Hepatitis C Virus Antibody w /Rflx to Quantitative Real-time PCR (836736) Reviewed date:09/25/2024 03:21:15 PM Interpretation: Performing Lab:[facility] [place], [address] [facility], Phone - [phone], Director - [facility] Notes/Report: HCV Ab Non Reactive Non Reactive Interpretation: Not infected with HCV unless early or acute infection is suspected (which may be delayed in an immunocompromised individual), or other evidence exists to indicate HCV infection. CMP 14 Comprehensive Metabol ic Panel* Reviewed date:09/25/2024 03:21:16 PM Interpretation: Performing Lab:[facility] [place], [address] [facility], Phone - [phone], Director - [facility] Notes/Report: Glucose 101 70-99 mg/dL BUN 7 6-24 mg/dL Creatinine 0.87 0.57-1.00 mg/dL eGFR 79 >59 mL/min/1.73 BUN/Creatinine Ratio 8 9-23 Sodium 146 134-144 mmol/L Potassium TNP Test not performed. Specimen is hemolyzed. Unable to obtain valid results. Chloride 107 96-106 mmol/L Carbon Dioxide, Total 18 20-29 mmol/L Calcium 9.9 8.7-10.2 mg/dL Protein, Total 7.7 6.0-8.5 g/dL Albumin 4.8 3.8-4.9 g/dL Globulin, Total 2.9 1.5-4.5 g/dL Bilirubin, Total 0.3 0.0-1.2 mg/dL Alkaline Phosphatase 59 44-121 IU/L AST (SGOT) 28 0-40 IU/L ALT (SGPT) 13 0-32 IU/L TSH Rfx on Abnormal to Free T4 Reviewed date:09/25/2024 03:21:16 PM Interpretation: Performing Lab:[facility], [address] [place] [address], Phone - [phone], [facility]/Report: TSH 3.330 0.450-4.500 uIU/mL Rapid Plasma Reagin (RPR) Te st With Reflex to Quantitative RPR and Confirmatory Treponema pallidum Antibodies Reviewed date:09/25/2024 03:21:16 PM Interpretation: Performing Lab:[facility] [place], [address] [place] [address], Phone - [phone], Director - [facility] Notes/Report: RPR Non Reactive Non Reactive MAMMOGRAM BILAT, SCREENING Reviewed date:12/17/2024 08:32:15 AM Interpretation:Normal Performing Lab: Notes/Report: Normal Reason For Referral No Information Medications Medication SIG (Take, Route, Frequency, Duration) Notes Start Date End Date Status traZODone HCl 100 MG 1 tablet at bedtime as needed Orally Once a day; Duration: 30 days 03/10/2025 Active Invega Sustenna 156 MG/ML 1 mL Intramusc ular every four weeks; Duration: 28 days 03/10/2025 Active DULoxetine HCl 60 MG 1 capsule Orally tw ice a day; Duration: 30 days Active Topiramate 100 MG 1 tablet Orally twic e a day; Duration: 30 days Active Triamcinolone Acetonide 0.1 % 1 application Externally twice a day 12/17/2024 Active Rizatriptan Benzoate 5 MG 1 tablet Orally Once a day; Duration: 30 days MIGRAINE (NOT TO EXCEED 2 DOSES PER WEEK) 12/17/2023 Active Airsupra 90-80 MCG/ACT 2 puffs as needed Inhalation every 4 hours; Duration: 30 days As needed shortness of breath 03/12/2025 Active hydrOXYzine Pamoate 50 MG 1 capsule at bedtime as needed Orally 3 times a day; Duration: 30 days As needed ITCHING 12/17/2024 Active Meloxicam 15 MG 1 tablet Orally Once a day; Duration: 30 days As needed JOINT PAIN 04/04/2024 Active Depakote ER 500 MG 2 tablets bedtime Or ally daily; Duration: 30 days 03/10/2025 Active Social History Tobacco Use: Social History Observation Description Date Details (start date - stop date) Never Smoker NA - NA Sex Assigned At : Social History Observation Description Sex Assigned At Female Tobacco Control (Standard) Question Answer Notes Tobacco use: Nonsmoker Problems Problem Type SNOMED Code ICD Code Onset Dates Problem Status W/U Status Risk Notes Problem Bodily distress disorder (disorder) (957159537) Somatoform disorder, unspecified (F45.9) Active confirmed Problem Hyperlipidemia (44629648) Hyperlipidemia (E78.5) Active confirmed Problem Major depression (787990959) Major depression (F32.9) Active confirmed Problem Posttraumatic stress disorder (94442147) PTSD (post-traumatic stress disorder) (F43.10) Active confirmed Problem Bipolar 1 disorder (046217896) Bipolar 1 disorder (F31.9) Active confirmed Problem Migraine (16533268) Migraine (G43.909) Active confirmed Problem Asthma (670938886) Asthma (J45.909) Active confirmed Problem Cannabis abuse (87842937) Cannabis abuse (F12.10) Active confirmed Problem Overweight (832346140) Over weight (E66.3) Active confirmed Problem Osteoarthritis (473312065) Osteoarthritis involving multiple joints on both sides of body (M15.9) Active confirmed Vital Signs Heart Rate 101 /min 03/12/2025 Temperature 98.2 degrees Fahrenheit 12/17/2024 Respiratory Rate 16 /min 03/12/2025 Blood pressure diastolic 66 mm Hg 03/12/2025 Oximetry 98 % 03/12/2025 Height 63.5 in in 03/12/2025 Blood pressure systolic 104 mm Hg 03/12/2025 Weight 165 lbs lbs 03/12/2025 BMI 28.77 kg/m2 03/12/2025 Encounters Encounter Location Date Provider Diagnosis [address] [place] [address] 09/23/2024 Ricci Parish Exposure to potentia l infection Z20.9 ; Screening for colon cancer Z12.11 ; Fatigue R53.83 ; Screening for diabetes mellitus Z13.1 ; Lipid screening Z13.220 and Spell of altered cognition R41.[address] [address] 03/19/2025 Arif Habib [address] [address] 03/25/2024 Arif Habib Major depression F32 .9 [facility] [address] [place] [address] 04/04/2024 Ricci Parish Acute sinusitis J01. 90 ; Osteoarthritis involving multiple joints on both sides of body M15.9 and Nutritional counseling Z71.[address] [address] 04/22/2024 Arif Habib Major depression F32 .[address] [address] 05/30/2024 Arif Habib Major depression F32 .[address] [address] 07/11/2024 Arif Habib Major depression F32 .[address] [address] 08/12/2024 Arif Habib Major depression F32 .[address] [address] 09/19/2024 Arif Habib Major depression F32 .[address] [address] 09/23/2024 Ricci Parish Spell of altered cognition R41.89 ; Fatigue R53.83 ; Exposure to potential infection Z20.9 ; Lipid screening Z13.220 ; Over weight E66.3 ; Screening for diabetes mellitus Z13.1 ; Breast cancer screening by mammogram Z12.31 and Screening for colon cancer Z12.[address] [address] 09/30/2024 Arif Habib Major depression F32 .[address] [address] 11/11/2024 Arif Habib Major depression F32 .[address] [address] 12/12/2024 Arif Habib Major depression F32 .[address] [address] 12/17/2024 Ricci Parish Hyperlipidemia E78.5 ; Dermatitis L30.9 ; Fatigue R53.83 ; Major depression F32.9 and Over weight E66.[address] [address] 01/06/2025 Arif Habib Major depression F32 .9 [facility] [address] [place] [address] 02/16/2025 Ricci Parish Major depression F32 .9 and Somatoform disorder, unspecified F45.[address] [address] 02/17/2025 Arif Habib Major depression F32 .[address] [address] 03/10/2025 Arif Habib Over weight E66.3 ; Major depression F32.9 ; Bipolar 1 disorder F31.9 and PTSD (post-traumatic stress disorder) F43.[address] [address] 03/12/2025 Ricci Parish Osteoarthritis involving multiple joints on both sides of body M15.9 ; Left shoulder pain M25.512 ; Cannabis abuse F12.10 ; Over weight E66.3 ; Dermatitis L30.9 and Asthma J45.[address] [address] 03/18/2025 Arif Habib [address] [address] 03/19/2025 Arif Habib [address] [address] 04/14/2024 Ricci Parish [address] [address] 04/25/2024 Ricci Parish Acute sinusitis J01. 90 ; Serous otitis media H65.90 and Yeast vaginitis B37.[address] [address] 07/03/2024 Ricci Parish [address] [address] 09/11/2024 Arif Habib Major depression F32 .[address] [address] 09/18/2024 Ricci Parish [address] [address] 09/25/2024 Ricci Parish [address] [address] 11/07/2024 Arif Habib Major depression F32 .[address] [address] 12/04/2024 Ricci Parish [address] [address] 01/05/2025 Arif Habib [address] [address] 02/12/2025 Ricci [facility] [address] [place] [address] 03/13/2025 Arif Habib Bipolar 1 disorder F31.9 Assessments Encounter Date Diagnosis (ICD Code) Assessment Notes Treatment Notes Treatment Clinical Notes Section Notes 04/25/2024 Acute sinusitis (ICD-10 - J01.90) 04/25/2024 Serous otitis media (ICD-10 - H65.90) 09/23/2024 Fatigue (ICD-10 - R53.83) 04/04/2024 Osteoarthritis involving multiple joints on both sides of body (ICD-10 - M15.9) 04/22/2024 Major depression (ICD-10 - F32.9) side effects discussed. Continue Topamax 100 mg BID. Continue Effexor 75 mg daily. Supportive treatment provided. Uses marijuana for pain, anxiety,PTSD. 05/30/2024 Major depression (ICD-10 - F32.9) side effects discussed. Continue Topamax 100 mg BID. Continue Effexor 75 mg daily. Supportive treatment provided. Uses marijuana for pain, anxiety,PTSD. 07/11/2024 Major depression (ICD-10 - F32.9) side effects discussed. Continue Topamax 100 mg BID. Lower Effexor 75 mg daily. Start Cymbalta 30 mg daily. Supportive treatment provided. Uses marijuana for pain, anxiety,PTSD. Advised to stop marijuana. Continue therapist in [place] 08/12/2024 Major depression (ICD-10 - F32.9) side effects discussed. Continue Topamax 100 mg BID. Stop Effexor 37.5 mg daily. Increase Cymbalta 60 mg daily. Supportive treatment provided. Uses marijuana for pain, anxiety,PTSD. Advised to stop marijuana. Continue therapist [place] 09/11/2024 Major depression (ICD-10 - F32.9) 09/19/2024 Major depression (ICD-10 - F32.9) side effects discussed. Continue Topamax 100 mg BID. Hold Cymbalta 60 mg daily until she sees PCP, Dr Parish on Sunday. Supportive treatment provided. Uses marijuana for pain, anxiety,PTSD. Continue therapist [place] 03/25/2024 Major depression (ICD-10 - F32.9) side effects discussed. Increase Topamax 100 mg BID. Continue Effexor 75 mg daily. Advised to stop marijuana. Supportive treatment provided. Uses marijuana for pain, anxiety,PTSD. 04/04/2024 Acute sinusitis (ICD-10 - J01.90) 09/23/2024 Spell of altered cognition (ICD-10 - R41.89) 09/23/2024 Exposure to potential infection (ICD-10 - Z20.9) 09/30/2024 Major depression (ICD-10 - F32.9) side effects discussed. Continue Topamax 100 mg BID. Restart Cymbalta 30 mg BID . Supportive treatment provided. Uses marijuana for pain, anxiety,PTSD. Continue therapist [place] Advised to cut down her marijuana. 11/07/2024 Major depression (ICD-10 - F32.9) 11/11/2024 Major depression (ICD-10 - F32.9) side effects discussed. Continue Topamax 100 mg BID. Change Cymbalta 30 mg BID to 60 mg daily because she forgets to take 2nd dose . Supportive treatment provided. Uses marijuana for pain, anxiety,PTSD. [place] Advised to cut down her marijuana. 12/12/2024 Major depression (ICD-10 - F32.9) side effects discussed. Continue Topamax & Cymbalta Supportive treatment provided. Uses marijuana for pain, anxiety,PTSD. [place] 12/17/2024 Hyperlipidemia (ICD-10 - E78.5) DISCUSSED HEALTHY DIET, FRUITS, VEGGIES, LEAN MEATS. 12/17/2024 Dermatitis (ICD-10 - L30.9) 01/06/2025 Major depression (ICD-10 - F32.9) side effects discussed. Continue Topamax. Increase Cymbalta 60 mg BID. Supportive treatment provided. Uses marijuana for pain, anxiety,PTSD. [place] 02/16/2025 Somatoform disorder, unspecified (ICD-10 - F45.9) 02/16/2025 Major depression (ICD-10 - F32.9) 02/17/2025 Major depression (ICD-10 - F32.9) side effects discussed. Continue Topamax. Increase Cymbalta 60 mg BID. Supportive treatment provided. Uses marijuana for pain, anxiety,PTSD. [place] 03/10/2025 Over weight (ICD-10 - E66.3) 03/12/2025 Left shoulder pain (ICD-10 - M25.512) 03/12/2025 Osteoarthritis involving multiple joints on both sides of body (ICD-10 - M15.9) 03/13/2025 Bipolar 1 disorder (ICD-10 - F31.9) 03/12/2025 Cannabis abuse (ICD-10 - F12.10) 12/17/2024 Fatigue (ICD-10 - R53.83) 03/10/2025 Major depression (ICD-10 - F32.9) side effects discussed. Hospital stopped Topamax & Cymbalta Continue Invega Sustenna 156 mg , Trazodone , Depakote Check depakote level, CBC, CMP Supportive treatment provided. Uses marijuana for pain, anxiety,PTSD. [place] 09/23/2024 Exposure to potential infection (ICD-10 - Z20.9) 09/23/2024 Screening for colon cancer (ICD-10 - Z12.11) 04/04/2024 Nutritional counseling (ICD-10 - Z71.3) 04/25/2024 Yeast vaginitis (ICD-10 - B37.31) 09/23/2024 Lipid screening (ICD-10 - Z13.220) 09/23/2024 Fatigue (ICD-10 - R53.83) 12/17/2024 Major depression (ICD-10 - F32.9) ONE OF HER SYMPTOMS IS PAIN. SHE IS STILL ANXIOUS. I ENDORSE INCREASING HER CYMBALTO TO 60 MG BID DUE TO DEPRESSION- SOCIATED PAIN AND ANXIETY. SHE DISCUSS WITH DR. HENDRIX. 03/10/2025 Bipolar 1 disorder (ICD-10 - F31.9) 03/12/2025 Over weight (ICD-10 - E66.3) 03/12/2025 Dermatitis (ICD-10 - L30.9) 12/17/2024 Over weight (ICD-10 - E66.3) 03/10/2025 PTSD (post-traumatic stress disorder) (ICD-10 - F43.10) 09/23/2024 Screening for diabetes mellitus (ICD-10 - Z13.1) 09/23/2024 Over weight (ICD-10 - E66.3) 09/23/2024 Screening for diabetes mellitus (ICD-10 - Z13.1) 09/23/2024 Lipid screening (ICD-10 - Z13.220) 03/12/2025 Asthma (ICD-10 - J45.909) 09/23/2024 Spell of altered cognition (ICD-10 - R41.89) 09/23/2024 Breast cancer screening by mammogram (ICD-10 - Z12.31) 09/23/2024 Screening for colon cancer (ICD-10 - Z12.11) 04/04/2024 Other Learning About the Safe Use of Antibiotics material was discussed. Pt was educated on use of antibiotic medication including dosing, side effects, adverse effects and anticipated response. Pt was also educated on importance of completing full course of treatment as ordered. Patient voiced understanding of all. 04/25/2024 Other Learning About the Safe Use of Antibiotics material was discussed. Pt was educated on use of antibiotic medication including dosing, side effects, adverse effects and anticipated response. Pt was also educated on importance of completing full course of treatment as ordered. Patient voiced understanding of all. Plan Of Treatment Pending Test Test Name Order Date CBC With Differential/Platelet* 03/13/20 25 Valproic Acid (Depakote)(R),S 03/13/2025 CMP 14 Comprehensive Metabolic Panel* Future Test Test Name Order Date Xray : Shoulder, left 03/12/2025 Next Appt Details Provider Name:Kip Hendrix, 02:00:00 PM, [address] [facility] , [place], [address], Insurance Providers Payer Name Payer Address Payer Phone Subscriber Number Group Number Insured Name Patient Relationship to Insured Coverage Start Date Coverage End Date [facility] Plan [address] [place] [address] [id number] 2 Ruthann Holland Self - patient is the insured 4 5 [facility] Attn Claims Department [address] [place] [phone] [id number] Ruthann Holland Self - patient is the insured 5 [facility] [address] [place] [address] [id number] 2 Ruthann Holland Self - patient is the insured 4 5 [facility] Attn Claims Department [address] [place] [address] [phone] [id number] Ruthann Holland Self - patient is the insured 5 Medical (General) History Surgical History Surgery Date(Month/Year) ablation 2013 Hospitalization History Reason Date(Month/Year) MH
== END 2025-03-19 18:28 | disposition home or self-care (01) ==
PROVIDERS: Emergency Provider Nurse Practitioner; PCP Internal Medicine
DX: L50.9 Urticaria, unspecified (principal)
CPT/HCPCS: 99203; G0463